=== PATIENT | female | born 1960 | race Caucasian/White ===

== ENCOUNTER 2019-08-19 15:05 | Day surgery (SDC) | payer BC ==
[~2019-08-19] VITALS: Ht 157.5 cm; Wt 98.4 kg
[~2019-08-19 15:05] MED LIST: ASPIRIN EC81 MG PO; CLINDAMYCIN HC150 MG PO
[2019-08-19] MEDS ORDERED: ASPIRIN325 MG PO (15:27)
--- NOTE | 2019-08-19 17:09 | NUR ---
08/19/19 1709 Renae Aguirre 1707-PATIENT ARRIVED TO PACU ON 3L NC PLACED ON 2L. PATIENT AWAKE DENIES PAIN OR NAUSEA. RR EVEN. ABDOMEN ROUND AND SOFT. PATIENT REPOSITIONED SELF TO BACK. ENCOURAGED TO PASS GAS
--- NOTE | 2019-08-19 18:09 | OR ---
[facility] [address] [place], [place] [address] Signed DATE OF OPERATION: 08/19/2019 SURGEON: Jose Tang MD PREOPERATIVE DIAGNOSES: 1. Colon screening. 2. Family history of colon cancer (mother). POSTOPERATIVE DIAGNOSIS: Normal colon to cecum. PROCEDURE: Total colonoscopy to cecum. ANESTHESIA: Intravenous sedation, fentanyl 150 mcg, Versed 8 mg. 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 The patient has never had colon evaluation in the past. She has no symptoms of bleeding, diarrhea, or constipation. She is admitted to undergo screening colonoscopy. She understands the risks of bleeding, infection, perforation. FINDINGS: The prep was good. Complete colonoscopy was undertaken of the cecum. There was no sign of polyps, diverticular formation, colitis, or cancer. DESCRIPTION OF PROCEDURE: The patient was brought to the endoscopy suite and placed in lateral decubitus position, given intravenous sedation to the point of slurred speech and nystagmus. Digital rectal examination was normal. An Olympus video colonoscope was passed in the rectum and manipulated throughout the colon ultimately intubating the cecum itself. Irrigation was undertaken as needed and the scope was then withdrawn. Upon withdrawal of scope, there was no sign of polyps, diverticular formation, colitis, or cancer. Retroflex view was normal as well. The scope was removed. The patient was taken to recovery room in good condition. CONCLUDING DIAGNOSIS: Electronically Signed By: JOSE TANG MD 08/19/19 1809 PATIENT NAME: HERRERA RUIZ OPERATIVE REPORT DATE OF : 60 REPORT #: [id number] PHYSICIAN: JOSE TANG MD PCP: ADELA CORTEZ PA-C REPORT IS CONFIDENTIAL AND NOT TO BE RELEASED WITHOUT AUTHORIZATION [facility] [address] [place], [place] [address], [place] [address] Signed Normal colon. PLAN: Recommend repeat colonoscopy in 5 years based on family history of colon cancer in her mother, certainly sooner if there are problems. MD CAROLYN La/MODL /[id number] cc: Adela Cortez PA-C Copies: ADELA CORTEZ PA-C ~ Electronically Signed By: JOSE TANG MD 08/19/19 1809 PATIENT NAME: HERRERA RUIZ OPERATIVE REPORT DATE OF : 60 REPORT #: [id number] PHYSICIAN: JOSE TANG MD PCP: ADELA CORTEZ PA-C REPORT IS CONFIDENTIAL AND NOT TO BE RELEASED WITHOUT AUTHORIZATION
== END 2019-08-19 17:45 | disposition home or self-care (01) ==
LOC: OPS 15:05
PROVIDERS: Surgery
PROC: 0DJD8ZZ Inspection of Lower Intestinal Tract, Via Natural or Artificial Opening Endoscopic (ICD-10-PCS; principal; 2019-08-19 14:00)
DX: Z12.11 Encounter for screening for malignant neoplasm of colon (principal); Z80.0 Family history of malignant neoplasm of digestive organs
CPT/HCPCS: 99153; G0500; J2250; J3010; J7120

== ENCOUNTER 2020-05-22 04:07 | Emergency (ER) | payer BC ==
[~2020-05-22] VITALS: Ht 157.5 cm; Wt 98.4 kg
[~2020-05-22 04:07] MED LIST changes: +ASPIRIN325 MG PO
[2020-05-22] MEDS ORDERED: AUGMENTIN 875-1 EACH PO (05:27)
== END 2020-05-22 05:44 | disposition home or self-care (01) ==
LOC: ED 04:07
PROC: 093K7ZZ Control Bleeding in Nasal Mucosa and Soft Tissue, Via Natural or Artificial Opening (ICD-10-PCS; principal; 2020-05-22)
DX: R04.0 Epistaxis (principal)
CPT/HCPCS: 30901; 30905; 80053; 85025; 85610; 85730; 99283-25; J2405

== ENCOUNTER 2025-01-05 16:40 | Emergency (ER) | payer OTHER ==
[~2025-01-05] VITALS: Ht 157.5 cm; Wt 93.0 kg
[~2025-01-05 16:40] MED LIST changes: +AUGMENTIN 875-1 EACH PO
[2025-01-05] MEDS ORDERED: AMOX TR-K CLV1 EAC1 PO (18:38)
[2025-01-05] MEDS ORDERED: PREDNISONE50 MG PO (18:38)
[2025-01-05] MEDS ORDERED: predniSONE 20 MG TAB PO ONE (18:45)
[2025-01-05] MEDS ORDERED: AMOXICILLIN/CLAVULANATE K 875 MG TAB PO ONE (18:45)
[2025-01-05 18:50] VITALS: BP 138/87
== END 2025-01-05 18:51 | disposition home or self-care (01) ==
LOC: ED 16:40
DX: J02.0 Streptococcal pharyngitis (principal); Z79.82 Long term (current) use of aspirin
CPT/HCPCS: 87651; 99283; J7512

== ENCOUNTER 2025-04-02 19:06 | Observation (INO) | payer MEDICARE, OTHER ==
[~2025-04-02] VITALS: Ht 157.5 cm; Wt 97.2 kg
[~2025-04-02 19:06] MED LIST changes: +AMOX TR-K CLV1 EAC1 PO; +PREDNISONE50 MG PO
[2025-04-02] MEDS ORDERED: CEFTRIAXONE SODIUM 2 GM in SODIUM CHLORIDE 0.9% 100 ML IV ONE (19:30)
[2025-04-02 19:36] LABS: HEMATOCRIT 42.5 % (35.0-50.0); HEMOGLOBIN 14.7 g/dL (12.0-18.0); MCHC 34.6 g/dl (30-36); MCV 92.4 fl (81-99); PLATELET COUNT 267 K/uL (140-440); RDW 13.6 (10.5-15.0)
[2025-04-02] MEDS ORDERED: LACTATED RINGER'S 1,000 ML IV ONE (19:45)
[2025-04-02 19:47] LABS: PARTIAL THROMBOPLASTIN TIME 28.4 Sec (22.9-41.3)
[2025-04-02 19:48] LABS: INR 1.25 (0.80-1.30)
[2025-04-02 19:53] LABS: ALBUMIN 2.7 g/dL (3.4-5.0); ALBUMIN/GLOBULIN RATIO 0.47 (1.1-2.4); ANION GAP 9.1 (7-21); BILIRUBIN, TOTAL 0.8 mg/dL (0.2-1.0); BUN/CREATININE RATIO 9.7 (6.0-28.6); CREATININE, SERUM 1.03 mg/dL (0.55-1.02); POTASSIUM 4.1 mmol/L (3.5-5.1); PROTEIN, TOTAL 8.5 g/dL (6.4-8.2)
[2025-04-02 20:00] LABS: LACTIC ACID, BLOOD 2.6 mmol/L (0.4-2.0)
[2025-04-02] MEDS ORDERED: methylPREDNISolone SOD SUCC 125 MG/2 ML VIAL IV ONE (20:00)
[2025-04-02] MEDS ORDERED: AZITHROMYCIN 500 MG in DEXTROSE 5% 250 ML IV ONE (20:00)
[2025-04-02] MEDS ORDERED: ALBUTEROL/IPRATROPIUM 3 ML NEB INH ONE (20:00)
[2025-04-02] MEDS ORDERED: ACETAMINOPHEN 500 MG TAB PO ONE (20:00)
[2025-04-02 20:02] LABS: LYMPHOCYTES, MANUAL DIFF 4; MONOCYTES, MANUAL DIFF 8; NEUTROPHILS, MANUAL DIFF 88
[2025-04-02] MEDS ORDERED: ACETAMINOPHEN 325 MG TAB PO PRN (20:30)
[2025-04-02] MEDS ORDERED: ondansetron HCL 4 MG/2 ML VIAL IV PRN (20:30)
[2025-04-02] MEDS ORDERED: SODIUM CHLORIDE 0.9% 1,000 ML IV PRN (20:30)
[2025-04-02 21:34] VITALS: BP 111/86
[2025-04-02 21:38] LABS: BILIRUBIN, URINE NEGATIVE (negative); BLOOD/HGB, URINE NEGATIVE (Negative); KETONE, URINE NEGATIVE (Negative); LEUK ESTERASE, URINE NEGATIVE (negative); NITRITE, URINE NEGATIVE (negative)
--- NOTE | 2025-04-02 22:07 | NUR ---
PT ADMITTED FROM THE ER WITH PNA. PT HAS A PRODUCTIVE COUGH. PT WAS NOTED TO HAVE A FEVER IN THE ER, WHICH THEY GAVE TYLENOL FOR. TEMPERATURE IS NOW WDL, REST OF VSS. TELE INITIATED AND READING SINUS TACH, CONTINUOUS PULSE OX ALSO DONE. PT STATED THAT THEY DO NOT KNOW WHEN THEIR LAST BM WAS, BUT THAT IT WAS NORMAL FOR THEM TO GO DAYS WITHOUT HAVING A BM. WILL MONITOR. DOUBLE SKIN ASSESSMENT COMPLETED WITH CHARGE NURSE, SKIN WDL. PT UP INDEPENDENTLY. UA OBTAINED. PT GIVEN CALL LIGHT AND INSTRUCTED ON USE. SAFETY PRECATUIONS MAINTIANED. WILL CONTINUE TO MONITOR.
[2025-04-02 22:15] LABS: LACTIC ACID, BLOOD 1.9 mmol/L (0.4-2.0)
[2025-04-02] MEDS ORDERED: ALBUTEROL SULFATE 0.083% 3 ML VIAL INH PRN (22:30)
--- NOTE | 2025-04-02 23:01 | NUR ---
HERRERA (AKA: ELVA) IS ABLE TO USE THE CORNET LEVEL 5 W/O DIFFICULTY OR INCREASED S/S OF RESPIRATORY DISTRESS.
[2025-04-03 02:40] VITALS: BP 114/52
[2025-04-03 02:43] VITALS: BP 114/52
[2025-04-03 05:37] VITALS: BP 110/52
[2025-04-03 05:42] LABS: BASOPHILS 0.2 % (0-2); EOSINOPHILS 0.1 % (0-6); HEMATOCRIT 41.8 % (35.0-50.0); HEMOGLOBIN 14.5 g/dL (12.0-18.0); LYMPHOCYTES 6.3 % (24-44); MCH 31.8 (27-36); MCHC 34.6 g/dl (30-36); MCV 91.8 fl (81-99); MONOCYTES 2.4 % (0-12); PLATELET COUNT 236 K/uL (140-440); RBC 4.55 M/ul (4.3-5.7); RDW 13.4 (10.5-15.0)
--- NOTE | 2025-04-03 06:01 | NUR ---
PT RESTED WELL DURING THE SHIFT. PT UP INDEPENDENTLY TO BATHROOM AND IN ROOM. VSS. TELE READING NSR. PT SATING WELL ON RA. SAFETY PRECAUTIONS MAINTAINED. CALL LIGHT WITHIN REACH. WILL CONTINUE TO MONITOR.
[2025-04-03 06:04] LABS: ALBUMIN 2.4 g/dL (3.4-5.0); ALBUMIN/GLOBULIN RATIO 0.44 (1.1-2.4); ANION GAP 11.2 (7-21); BILIRUBIN, TOTAL 0.5 mg/dL (0.2-1.0); BUN/CREATININE RATIO 12.5 (6.0-28.6); CALCIUM 8.9 mg/dL (8.5-10.1); CREATININE, SERUM 0.88 mg/dL (0.55-1.02); MAGNESIUM 2.2 mg/dL (1.8-2.4); POTASSIUM 4.2 mmol/L (3.5-5.1); PROTEIN, TOTAL 7.9 g/dL (6.4-8.2)
--- NOTE | 2025-04-03 07:09 | NUR ---
REPORT RECEIVED FROM FORGING PRESS SETTER UP LILIAN MOREIRA. PATIENT IS LYING IN BED WITH EYES CLOSED AND RESPIRATIONS ARE EVEN AND ULABORED. PATIENT IS ON ROOM AIR WITH THE CPOX AT BEDSIDE. CALL LIGHT AND PERSONAL BELONGINGS ARE WITHIN REACH.
--- NOTE | 2025-04-03 08:00 | NUR ---
PATIENT TO X-RAY WITH BRIAN. LINENS CHANGED.
--- NOTE | 2025-04-03 08:45 | NUR ---
PATIENT IS LYING IN BED WITH HOB ELEVATED. PATIENT ASKING QUESTIONS REGARDING THE TV CHANNEL. THIS RN GAVE THE PATIENT THE TV GUIDE. PATIENT EXPRESSED NO FURTHER NEEDS AT THIS TIME. CALL LIGHT AND PERSONAL BELONGINGS ARE WITHIN REACH.
[2025-04-03 09:03] VITALS: BP 121/55
[2025-04-03 09:05] VITALS: BP 121/55
--- NOTE | 2025-04-03 09:35 | NUR ---
PATIENT IS LYING IN BED WITH HOB ELEVATED. VITAL SIGNS AND INTAKE AND OUTPUT TAKEN AND DOCUMENTED IN THE CHART. FULL ASSESSMENT COMPLETE AND DOCUMENTED IN THE CHART. PATIENT IS ALERT AND ORIENTED TIMES FOUR. PATIENT IS INDEPENDENT IN THE ROOM. SKIN INTACT. PATIENT WITH NO COMPLAINTS OF PAIN AT THIS TIME. PATIENT IS ON TELEMETRY NUMBER 6. PATIENT IS IN NORMAL SINUS RHYTHM. IV SITE FLUSHED WITH 10 ML NORMAL SALINE AND IS SALINE LOCKED. IV DRESSING IS CLEAN, DRY, AND INTACT. PATIENT IS A REGULAR DIET AND BOWEL TONES ARE ACTIVE IN ALL FOUR QUADRANTS. PATIENT REPORTS HER ABDOMEN IS TENDER. PATIENT IS ON ROOM AIR WITH A CONTINUOUS PULSE OX CONNECTED TO THE TELEMETRY. PATIENT LUNG SOUNDS ARE CLEAR THROUGHOUT. PATIENT WITH COMPLAINTS OF A LITTLE BIT OF SOB. CARDIAC WITH NORMAL S1 AND S2 ON AUSCULTATION. RADIAL AND PEDAL PULSES ARE STRONG BILATERALLY. CAPILLARY REFILL IS LESS THAN 3 SECONDS BILATERALLY. NO EDEMA NOTED. SENSATION INTACT WITH NO COMPLAINTS OF NUMBNESS OR TINGLING. PATIENT STATED NO FURTHER NEEDS AT THIS TIME. CALL LIGHT AND PERSONAL BELONGINGS ARE WITHIN REACH.
[2025-04-03] MEDS ORDERED: VENTOLIN HFA18 GM INH (10:18)
--- NOTE | 2025-04-03 10:24 | NUR ---
PATIENT IS ON HER RIGHT SIDE AND SPEAKING WITH A VISITOR SITTING IN THE CHAIR AT BEDSIDE. PATIENT REMAINS ON ROOM AIR WITH THE CPOX AT BEDSIDE. PATIENT STATED NO FURTHER NEEDS AT THIS TIME. CALL LIGHT AND PERSONAL BELONGINGS ARE WITHIN REACH.
[2025-04-03] MEDS ORDERED: CEFTRIAXONE SODIUM 1 GM in SODIUM CHLORIDE 0.9% 100 ML IV ONE (10:45)
[2025-04-03] MEDS ORDERED: AZITHROMYCIN 250 MG TAB PO ONE (10:45)
[2025-04-03] MEDS ORDERED: ondansetron HCL 4 MG/2 ML VIAL IV PRN (11:00)
[2025-04-03] MEDS ORDERED: ACETAMINOPHEN 325 MG TAB PO PRN (11:00)
[2025-04-03] MEDS ORDERED: LEVOFLOXACIN750 MG PO (11:03)
[2025-04-03] MEDS ORDERED: PHARMACY RENAL DOSE ADJUSTMENT 1 DOSE MISC PO SCH (12:00)
--- NOTE | 2025-04-03 12:20 | NUR ---
ROCEPHIN INFUSION COMPLETE AT THIS TIME. IV SITE FLUSHED WITH 10 ML NORMAL SALINE AND IS SALINE LOCKED. PATIENT IS LYING IN BED WITH HOB ELEVATED AND EATING LUNCH. PATIENT IS ON ROOM AIR WITH NO COMPLAINTS OF SOB. IV PUMP CLEARED OF INTAKE FLUID. PATIENT STATED NO FURTHER NEEDS AT THIS TIME. CALL LIGHT AND PERSONAL BELONGINGS ARE WITHIN REACH.
--- NOTE | 2025-04-03 17:52 | EKG ---
[facility] [address] [facility] [place], [place] [address] Signed Sinus tachycardia Otherwise normal ECG No previous ECGs available Confirmed by Néstor Anguiano MD ([id number]) on 04/03/2025 5:52:16 PM Electronically Signed By: NÉSTOR ANGUIANO MD 04/03/251751 PATIENT NAME: HERRERA RUIZ Electrocardiogram DATE OF : 60 PHYSICIAN: NÉSTOR ANGUIANO MD REPORT #: [id number] REPORT IS CONFIDENTIAL AND NOT TO BE RELEASED WITHOUT AUTHORIZATION
[2025-04-03] MEDS ORDERED: AZITHROMYCIN 500 MG in DEXTROSE 5% 250 ML IV SCH (18:00)
[2025-04-03] MEDS ORDERED: CEFTRIAXONE SODIUM 2 GM in SODIUM CHLORIDE 0.9% 100 ML IV SCH (18:00)
== END 2025-04-03 13:10 | disposition home or self-care (01) ==
LOC: ED 19:06 → MS 19:07
PROVIDERS: Internal Medicine; ADMIT Student in an Organized Health Care Education/Training Program; ATTEND Student in an Organized Health Care Education/Training Program
DX: J18.9 Pneumonia, unspecified organism (principal); Z79.82 Long term (current) use of aspirin; Z79.899 Other long term (current) drug therapy
CPT/HCPCS: 36415; 71045; 71046; 80053; 81003; 83605; 83735; 83880; 84484; 85025; 85610; 85730; 87040; 93005; 93010; 94640; 94667; 94762; 96365; 96366; 96375; 99285-25; A9270; G0378; J0456; J0696; J2919; J7030; J7060; J7121